=== PATIENT | female | born 2005 | race Caucasian/White ===

== ENCOUNTER 2024-08-09 11:28 | Emergency (ER) | payer BC, SELFPAY ==
[2024-08-09 11:47] VITALS: BP 141/85; PULSE 86; RESP 18; TEMP 37.1; O2SAT 100; BMI 20.9
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
[2024-08-09] MEDS: IBUPROFEN TAB 600 MG TABLET PO (11:59)
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
[2024-08-09 12:43] VITALS: BP 127/84; PULSE 81; RESP 17; TEMP 36.9; O2SAT 99
== END 2024-08-09 12:45 | disposition home or self-care (01) ==
PROVIDERS: Emergency Provider Emergency Medicine
DX: S89.92XA Unspecified injury of left lower leg, initial encounter (principal); V89.2XXA Person injured in unspecified motor-vehicle accident, traffic, initial encounter
CPT/HCPCS: 73590; 99283; A9270